=== PATIENT | male | born 1960 | race Caucasian/White ===

== ENCOUNTER 2017-01-18 14:58 | Emergency (ER) | payer MEDICAID ==
[~2017-01-18] VITALS: Ht 182.9 cm; Wt 73.0 kg
[2017-01-18] MEDS ORDERED: ZOLP10TA6 PO (15:22)
[2017-01-18] MEDS ORDERED: BUSP15TA3 PO (15:22)
[2017-01-18] MEDS ORDERED: DIVA500T51 PO (15:22)
[2017-01-18] MEDS ORDERED: CLON0.1T PO (15:22)
[2017-01-18] MEDS ORDERED: LORA0.5T2 PO (15:22)
[2017-01-18] MEDS ORDERED: TOPI25TA48 PO (15:22)
[2017-01-18] MEDS ORDERED: CARB-32 PO (15:22)
[2017-01-18] MEDS ORDERED: NAPR-681 PO (15:22)
[2017-01-18] MEDS ORDERED: ROPI0.5T PO (15:22)
[2017-01-18] MEDS ORDERED: ZIPR80CA2 PO (15:22)
[2017-01-18] MEDS ORDERED: IBUPROFEN 600MG TABLET PO ONE (18:30)
[2017-01-18] MEDS ORDERED: CEPHALEXIN 500MG CAPSULE PO ONE (18:30)
[2017-01-18 19:58] VITALS: BP 137/69
== END 2017-01-18 19:40 | disposition home or self-care (01) ==
LOC: ER 16:13
DX: S60.512A Abrasion of left hand, initial encounter (principal); L03.114 Cellulitis of left upper limb; X58.XXXA Exposure to other specified factors, initial encounter; Y93.89 Activity, other specified; Y92.89 Other specified places as the place of occurrence of the external cause; Y99.8 Other external cause status
CPT/HCPCS: 99283

== ENCOUNTER 2023-05-29 13:27 | Emergency (ER) | payer MEDICAID, OTHER ==
[~2023-05-29] VITALS: Ht 170.2 cm; Wt 75.0 kg
[~2023-05-29 13:27] MED LIST: BUSP15TA3 PO; CARB-32 PO; CLON0.1T PO; DIVA500T51 PO; LORA0.5T2 PO; NAPR-681 PO; TOPI25TA48 PO; ZIPR80CA2 PO; ZOLP10TA6 PO; [UNRECOGNIZED DRUG - CODE] PO
[2023-05-29 13:29] VITALS: O2SAT 100
[2023-05-29] MEDS: BACITRACIN ZINC OINT UDPKT TOP ONE (14:00)
[2023-05-29] MEDS: LIDOCAINE HCL/PF 1% 10 MG/ML 5ML VIAL INFIL ONE (14:00)
[2023-05-29] MEDS: ACETAMINOPHEN 325MG TABLET PO STA (14:45)
[2023-05-29] MEDS ORDERED: NAPR-681 MT (15:58)
[2023-05-29 16:13] VITALS: BP 168/81; PULSE 69; RESP 16; TEMP 98.4
== END 2023-05-29 16:17 | disposition home or self-care (01) ==
LOC: ER 13:33
DX: S61.412A Laceration without foreign body of left hand, initial encounter (principal); S60.222A Contusion of left hand, initial encounter; M25.512 Pain in left shoulder; F31.9 Bipolar disorder, unspecified; F20.9 Schizophrenia, unspecified; W18.39XA Other fall on same level, initial encounter; Y93.89 Activity, other specified; Y92.89 Other specified places as the place of occurrence of the external cause; Y99.8 Other external cause status
CPT/HCPCS: 73030; 73130; 99284; J3490; Z7610 ×2